=== PATIENT | female | born 1995 | race Caucasian/White ===

== ENCOUNTER 2018-12-29 09:10 | Emergency (ER) | payer OTHER ==
[~2018-12-29] VITALS: Ht 162.6 cm; Wt 60.3 kg
[2018-12-29] MEDS ORDERED: ZITHROMAX500 MG PO (14:53)
== END 2018-12-29 15:22 | disposition home or self-care (01) ==
LOC: ER 09:10
DX: B96.0 Mycoplasma pneumoniae [M. pneumoniae] as the cause of diseases classified elsewhere (principal); R06.02 Shortness of breath

== ENCOUNTER 2019-05-13 16:06 | Emergency (ER) | payer OTHER ==
[~2019-05-13] VITALS: Ht 154.9 cm; Wt 63.0 kg
[~2019-05-13 16:06] MED LIST: ZITHROMAX500 MG PO
[2019-05-13] MEDS ORDERED: MEDROL2 MG (16:47)
[2019-05-13] MEDS ORDERED: SYMBICORT 16010.2 GM (16:48)
== END 2019-05-13 21:28 | disposition home or self-care (01) ==
LOC: ER 16:06
DX: R06.02 Shortness of breath (principal); R07.89 Other chest pain; B96.0 Mycoplasma pneumoniae [M. pneumoniae] as the cause of diseases classified elsewhere; F06.4 Anxiety disorder due to known physiological condition